=== PATIENT | male | born 1985 | race Caucasian/White ===

== ENCOUNTER 2022-04-08 09:10 | Inpatient (IN) | payer MEDICAID ==
[~2022-04-08] VITALS: Ht 175.3 cm; Wt 78.0 kg
[2022-04-08] MEDS ORDERED: ONDANSETRON HCL 4MG/2ML INJ IV STA (09:45)
[2022-04-08] MEDS ORDERED: SODIUM CHLORIDE 0.9% 1,000 ML IV ONE ×2 (09:45→10:30)
[2022-04-08] MEDS ORDERED: FAMOTIDINE 20MG/2ML VIAL IV STA (09:45)
[2022-04-08 10:33] LABS: BASOPHILS % 0.8 % (0.0-2.0); EOSINOPHILS % 2.2 % (0.0-5.0); HEMATOCRIT. 44.7 % (42.0-52.0); HEMOGLOBIN. 15.5 g/dL (14.0-18.0); LYMPHOCYTES % 41.5 % (20.0-50.0); MEAN CORPUSCULAR HEMOGLOBIN 33.1 pg (28.0-32.0); MEAN CORPUSCULAR VOLUME 95.2 fL (80.0-94.0); MEAN PLATELET VOLUME 8.4 fl (7.4-10.4); MONOCYTES % 11.6 % (2.0-8.0); NEUTROPHILS % 43.9 % (40.0-76.0); PLATELET 191 x1000/uL (130-400); RED BLOOD CELL COUNT 4.69 mill/uL (4.7-6.1); RED CELL DISTRIBUTION WIDTH 12.5 % (11.6-14.6)
[2022-04-08 10:48] LABS: PROTHROMBIN TIME 10.9 sec (9.6-11.0)
[2022-04-08 10:55] LABS: CHLORIDE 108 mEq/L (98-107)
[2022-04-08 11:10] LABS: BETA HYDROXYBUTYRATE 0.3 mMol/L (0.0-0.3)
[2022-04-08] MEDS ORDERED: IOHEXOL-300 100 ML BOTTLE ONE (11:40)
[2022-04-08 12:23] LABS: CLARITY URINE CLEAR (CLEAR); COLOR URINE YELLOW (YELLOW); KETONES URINE TRACE (NEGATIVE); LEUKOCYTE ESTERASE URINE NEGATIVE (NEGATIVE); NITRITE URINE NEGATIVE (NEGATIVE); OCCULT BLOOD URINE NEGATIVE (NEGATIVE); PH URINE 8.5 (4.5-8.0); PROTEIN URINE NEGATIVE (NEGATIVE); SPECIFIC GRAVITY URINE 1.008 (1.005-1.030); UROBILINOGEN URINE 0.2 E.U./dL (0.2-1.0)
[2022-04-08 12:57] LABS: *AMPHETAMINES SCREEN URINE NEGATIVE (NEGATIVE); *BARBITURATES SCREEN URINE NEGATIVE (NEGATIVE); *BENZODIAZEPINES SCREEN URINE NEGATIVE (NEGATIVE); *COCAINE SCREEN URINE NEGATIVE (NEGATIVE); CANNABINOID URINE SCREEN NEGATIVE (NEGATIVE); METHADONE URINE SCREEN NEGATIVE (NEGATIVE); OPIATES URINE SCREEN NEGATIVE (NEGATIVE); PHENCYCLIDINE URINE SCREEN NEGATIVE (NEGATIVE)
[2022-04-08] MEDS ORDERED: LACTULOSE 20G/30ML UDC PO NR (13:30)
[2022-04-08] MEDS ORDERED: POLYETHYLENE GLYCOL 3350 (17GM) 1 DOSE PACK PO NR (13:30)
[2022-04-08] MEDS ORDERED: BISACODYL 10MG SUPP PR ONE (15:15)
[2022-04-08 19:00] VITALS: BP 124/72
[2022-04-08] MEDS ORDERED: MAGNESIUM HYDROXIDE 400MG/5ML 30ML UDC PO PRN (19:00)
[2022-04-08] MEDS ORDERED: MAGNESIUM/ALUMINUM HYDROXIDE/SIMETHICONE 30ML UDC PO PRN (19:00)
[2022-04-08] MEDS: DEXT 5%/0.45% NACL 1000ML 1,000 ML IV SCH (19:00)
[2022-04-08] MEDS ORDERED: ZOLPIDEM TARTRATE 5MG TABLET PO PRN (19:00)
[2022-04-08] MEDS ORDERED: ACETAMINOPHEN 325MG TABLET PO PRN ×2 (19:00)
[2022-04-08] MEDS ORDERED: ONDANSETRON HCL 4MG/2ML INJ IV PRN (19:00)
[2022-04-08 20:00] VITALS: BP 118/67
[2022-04-09] VITALS: BP 102/70
[2022-04-09] MEDS: DEXT 5%/0.45% NACL 1000ML 1,000 ML IV SCH ×3 (02:56→19:00)
[2022-04-09 04:00] VITALS: BP 101/66
[2022-04-09 08:00] VITALS: BP 116/68
[2022-04-09 10:23] LABS: EOSINOPHILS % 1.9 % (0.0-5.0); HEMATOCRIT. 44.6 % (42.0-52.0); HEMOGLOBIN. 15.6 g/dL (14.0-18.0); LYMPHOCYTES % 35.5 % (20.0-50.0); MEAN CORPUSCULAR HEMOGLOBIN 33.2 pg (28.0-32.0); MEAN PLATELET VOLUME 8.1 fl (7.4-10.4); MONOCYTES % 11.6 % (2.0-8.0); PLATELET 203 x1000/uL (130-400); RED BLOOD CELL COUNT 4.69 mill/uL (4.7-6.1); RED CELL DISTRIBUTION WIDTH 12.5 % (11.6-14.6)
[2022-04-09 10:29] LABS: CHLORIDE 101 mEq/L (98-107)
[2022-04-09 19:26] VITALS: BP 100/67
[2022-04-09 20:00] VITALS: BP 97/63
[2022-04-09] MEDS ORDERED: INFLUENZA VACCINE 05/PF 0.5 ML SYRINGE IM ONE (21:00)
[2022-04-10] VITALS: BP 98/65
[2022-04-10] MEDS: DEXT 5%/0.45% NACL 1000ML 1,000 ML IV SCH (03:16)
[2022-04-10 04:00] VITALS: BP 104/51
== END 2022-04-10 07:34 | disposition home or self-care (01) | DRG 249 ==
LOC: ER 09:10 → EDBEDREQ 09:54 → 6EST 15:16 → EDBEDREQ 15:28 → EDBEDREQTM 15:28 → 6EST 18:27
PROVIDERS: ADMIT Internal Medicine; ATTEND Internal Medicine
DX: K52.9 Noninfective gastroenteritis and colitis, unspecified (principal); E86.0 Dehydration; E87.5 Hyperkalemia; K56.41 Fecal impaction; Z59.00 Homelessness unspecified
CPT/HCPCS: 36415; 70551; 74177; 80048; 80053; 80305; 80320; 81003; 82010; 82533; 83605; 84443; 85025; 90686; 99285; J2405; J3490; J7030; Q9967; G0480